=== PATIENT | male | born 1955 | race Caucasian/White ===

== ENCOUNTER 2017-02-27 07:07 | Day surgery (SDC) | payer OTHER ==
[~2017-02-27] VITALS: Ht 167.6 cm; Wt 96.0 kg
[2017-02-27 07:26] VITALS: Ht 167.6 cm; Wt 96.0 kg
[2017-02-27] MEDS ORDERED: OMEGA 3 (07:42)
[2017-02-27] MEDS ORDERED: CALCIUM (07:42)
[2017-02-27 07:56] VITALS: BP 121/72; PULSE 71; RESP 17
--- NOTE | 2017-02-27 08:41 | OPPN ---
Date/Time of Note Date/Time of Note DATE: 02/27/17 TIME: 08:37 Proc Note GI Procedure date: Feb 27, 2017 Pre-procedure Diagnosis Colonoscopy rule out colon polyps Post-procedure Diagnosis We will external hemorrhoids No polyps Operation Performed Colonoscopy Surgeon: MIRNA GONZALEZ MD Anesthesia Type: moderate sedation Estimated blood loss: none Transfusion Required: no Specimen: none Grafts/Implants: none Complications: no Pt Condition post procedure: stable Indications Rule out colon polyps Operative\Procedure Findings Informed written consent is obtained patient was ostial in the left lateral side 3 mg Versed 50 mcg of fentanyl was given as intravenous anesthesia. When the patient become somnolent Olympus video colonoscope was introduced into the right was advanced all the way to the [email or web address] Colon polyps or any other abnormality detected. on the way out minimal external hemorrhoids were noted the same procedure was terminated plan recommend a repeat colonoscopy in [address] gonzalez to Dr[address] Sudhakar Lua in the [place] MIRNA GONZALEZ MD Feb 27, 2017 08:40
[2017-02-27] MEDS ORDERED: FENTAnyl 50 MCG/ML VIAL ONE (08:45)
[2017-02-27] MEDS ORDERED: MIDAZOLAM 1 MG/ML 2 ML INJ ONE ×2 (08:45)
[2017-02-27 09:02] VITALS: BP 115/72; PULSE 66; RESP 14
== END 2017-02-27 11:48 | disposition home or self-care (01) ==
LOC: GIL 07:07
PROVIDERS: ATTEND Internal Medicine Gastroenterology
DX: Z12.11 Encounter for screening for malignant neoplasm of colon (principal); K64.8 Other hemorrhoids
CPT/HCPCS: 45378; J2250; J3010